=== PATIENT | female | born 1985 | race Caucasian/White ===

== ENCOUNTER 2018-09-03 13:07 | Emergency (ER) | payer SELFPAY ==
--- NOTE | 2018-09-03 13:48 | EDM.PDOC ---
ED HPI GENERAL MEDICAL PROBLEM - General Chief Complaint: Lower Extremity Injury/Pain Stated Complaint: KNEE INJERY Time Seen by Provider: 09/03/18 13:30 Source of Information: Reports: Patient History Limitations: Reports: No Limitations - History of Present Illness INITIAL COMMENTS - FREE TEXT/NARRATIVE: 32-year-old female was stepping out of a pickup less than 2 hours ago when she slipped on the ice and hyperextended her knee. She felt her lower leg go backwards relative to her upper leg and now she is having difficulty bearing weight. She's noticed swelling in her knee and it feels unstable. No other injury. Onset: Sudden - Related Data Allergies Allergy/AdvReac Type Severity Reaction Status Date / Time No Known Allergies Allergy Verified 09/03/18 13:28 Home Meds: Home Meds Norgestimate-Ethinyl Estradiol [Ortho Tri-Cyclen 28 Tablet] 09/03/18 [History] Past Medical History - Past Health History Medical/Surgical History: Denies Medical/Surgical History Social & Family History - Tobacco Use Smoking Status *Q: Never Smoker Review of Systems - Review of Systems Review Of Systems: See Below Constitutional: Denies: Fever Respiratory: Reports: No Symptoms Cardiovascular: Reports: No Symptoms GI/Abdominal: Reports: No Symptoms Skin: Reports: No Symptoms ED EXAM, GENERAL - Physical Exam Exam: See Below Exam Limited By: No Limitations General Appearance: Alert, No Apparent Distress Respiratory/Chest: No Respiratory Distress Extremities: Other (Exam is otherwise limited to the lower extremities. She has an effusion in the right knee, and is exquisitely tender to any palpation of the medial or lateral joint line. The patellar tendon is nontender. Any stress to the knee valgus or varus is too painful for a good evaluation.) Course - Vital Signs Last Recorded V/S: Last Vital Signs Temp 97.0 F 09/03/18 13:35 Pulse 76 09/03/18 13:35 Resp 14 09/03/18 13:35 BP 119/70 09/03/18 13:35 Pulse Ox 99 09/03/18 13:35 - Orders/Labs/Meds Orders: Active Orders 24 hr Category Date Time Status Knee Min 4V Rt [CR] Stat Exams 09/03/18 13:47 Taken DME for Discharge [COMM] Stat Oth 09/03/18 14:22 Ordered Meds: Medications Discontinued Medications Generic Name Dose Route Start Last Admin Trade Name Nikunj PRN Reason Stop Dose Admin Ketorolac Tromethamine 60 mg 09/03/18 14:16 09/03/18 14:20 Toradol IM 09/03/18 14:17 60 mg ONETIME ONE Administration Ketorolac Tromethamine Confirm 09/03/18 14:17 Toradol Administered 09/03/18 14:18 Dose 60 mg .ROUTE .STK-MED ONE - Re-Assessments/Exams Free Text/Narrative Re-Assessment/Exam: 09/03/18 13:55 Patient was sent for a right knee x-ray. 09/03/18 14:20 X-ray shows no bony injury but an effusion is obvious. The knee was actually more swollen when she came back from x-ray. An Harpreet wrap was applied to the knee , she was given 60 mg of IM Toradol and then a knee immobilizer was attempted along with crutches. 09/03/18 14:36 Patient was discharged with 10 doses of hydrocodone to help with pain, a copy of the x-ray and should recheck with orthopedics as soon as possible. Departure - Departure Time of Disposition: 15:21 Disposition: Home, Self-Care 01 Condition: Good Clinical Impression: ACL tear Qualifiers: Encounter type: initial encounter Laterality: right Qualified Code(s): S83.511A - Sprain of anterior cruciate ligament of right knee, initial encounter - Discharge Information Instructions: Crutch Use, Adult, [id number], Anterior Cruciate Ligament Tear Referrals: PCP,None [Primary Care Provider] - Forms: ED Department Discharge Care Plan Goals: Immobilize knee, use crutches and avoid weight bearing until rechecked by orthopedics. Use pain medication as prescribed if needed. - My Orders Last 24 Hours: My Active Orders 09/03/18 13:47 Knee Min 4V Rt [CR] Stat 09/03/18 14:22 DME for Discharge [COMM] Stat - Assessment/Plan Last 24 Hours: My Active Orders 09/03/18 13:47 Knee Min 4V Rt [CR] Stat 09/03/18 14:22 DME for Discharge [COMM] Stat
[2018-09-03] MEDS ORDERED: Ketorolac 60 MG/2 ML SDV IM ONE (14:16)
[2018-09-03] MEDS ORDERED: Ketorolac 60 MG/2 ML SDV ONE (14:17)
== END 2018-09-03 15:22 | disposition home or self-care (01) ==
LOC: JP.ED 13:07
DX: S83.511A Sprain of anterior cruciate ligament of right knee, initial encounter (principal); W00.0XXA Fall on same level due to ice and snow, initial encounter
CPT/HCPCS: 73564; 96372; 99284; J1885